=== PATIENT | male | born 1975 | race Caucasian/White ===

== ENCOUNTER 2023-09-27 22:25 | Emergency (ER) | payer OTHER ==
[~2023-09-27] VITALS: Ht 170.2 cm; Wt 69.9 kg
[2023-09-27 22:44] VITALS: BP_SYST 164; PULSE 104; RESP 18; TEMP 98.1; O2SAT 99
[2023-09-27] MEDS ORDERED: METOCLOPRAMIDE HCL 10 MG TABLET PO ONE (23:15)
[2023-09-27] MEDS ORDERED: GLUCAGON,HUMAN RECOMBINANT 1 MG VIAL SUBCUT ONE (23:15)
[2023-09-27 23:55] VITALS: BP_SYST 163; PULSE 100; RESP 18; TEMP 98.1; O2SAT 99
== END 2023-09-27 23:55 | disposition home or self-care (01) ==
LOC: SED 22:25
DX: T18.9XXA Foreign body of alimentary tract, part unspecified, initial encounter (principal); E11.9 Type 2 diabetes mellitus without complications; Z79.899 Other long term (current) drug therapy; W44.8XXA Other foreign body entering into or through a natural orifice, initial encounter; Y93.89 Activity, other specified; Y92.89 Other specified places as the place of occurrence of the external cause; Y99.8 Other external cause status
CPT/HCPCS: 99283; 70360; 96372; J1610; J8597